=== PATIENT | male | born 1960 | race Caucasian/White ===

== ENCOUNTER 2021-05-27 14:38 | Emergency (ER) | payer SELFPAY | END 2021-05-27 16:20 | disposition left against medical advice (07) | LOC: JP.ED 14:38 | DX: Z53.21 Procedure and treatment not carried out due to patient leaving prior to being seen by health care provider (principal) ==

== ENCOUNTER 2023-02-01 01:27 | Emergency (ER) | payer SELFPAY ==
[2023-02-01 01:40] VITALS: BP 143/80; PULSE 69
[2023-02-01] MEDS ORDERED: Acetaminophen/HYDROcodone 325-10 MG Tab PO ONE (02:00)
[2023-02-01] MEDS ORDERED: Pantoprazole 40 MG Vial IVPUSH ONE (02:00)
[2023-02-01 02:35] LABS: BASOPHILS ABSOLUTE AUTO 0.05 K/uL (0.00-0.10); BASOPHILS PERCENT AUTO 0.4 % (0.1-1.3); EOSINOPHILS ABSOLUTE AUTO 0.07 K/uL (0.00-0.40); EOSINOPHILS PERCENT AUTO 0.6 % (0.0-5.4); HEMATOCRIT 47.3 % (38.4-49.7); HEMOGLOBIN 16.1 g/dL (12.9-16.9); IMMATURE GRAN ABSOLUTE AUTO 0.05 K/uL (0.00-0.23); IMMATURE GRAN PERCENT AUTO 0.4 % (0.0-0.7); LYMPHOCYTES ABSOLUTE AUTO 1.04 K/uL (0.8-3.3); LYMPHOCYTES PERCENT AUTO 8.9 % (11.4-47.7); MEAN CORPUSCULAR HEMOGLOBIN 30.6 pg (31.6-35.5); MEAN CORPUSCULAR VOLUME 89.8 fL (81.4-99.0); MONOCYTES ABSOLUTE AUTO 0.79 K/uL (0.20-0.90); MONOCYTES PERCENT AUTO 6.8 % (3.3-12.6); NEUTROPHILS ABSOLUTE AUTO 9.65 K/uL (1.0-7.6); NEUTROPHILS PERCENT AUTO 82.9 % (40.0-78.1); PLATELET COUNT,PLT 264 K/uL (130-375); RED BLOOD CELL COUNT 5.27 M/uL (4.14-5.76); WHITE BLOOD CELL COUNT,WBC 11.7 K/uL (3.2-11.0)
[2023-02-01 02:55] LABS: A/G RATIO 0.8 (1.2-2.2); ALANINE AMINOTRANSFERASE,ALT 48 U/L (12-78); ALBUMIN 3.7 g/dL (3.4-5.0); ALKALINE PHOSPHATASE 95 U/L (46-116); ANION GAP 9.6 mmol/L (5.0-14.0); ASPARTATE AMNIOTRANSFERASE,AST 111 U/L (15-37); BILIRUBIN TOTAL 1.8 mg/dL (0.2-1.0); BLOOD UREA NITROGEN,BUN 15 mg/dL (7-18); CALCIUM 9.5 mg/dL (8.5-10.1); CARBON DIOXIDE,CO2 28 mmol/L (21-32); CHLORIDE,CL 103 mmol/L (100-108); EST CRCL DRUG DOSING (CG) 73.41 mL/min; ESTIMATED GFR 84 mL/min (>60); GLUCOSE RANDOM 144 mg/dL (74-106); LIPASE 580 U/L (73-393); POTASSIUM,K 3.7 mmol/L (3.6-5.2); PROTEIN TOTAL,TP 8.1 g/dL (6.4-8.2); SODIUM,NA 141 mmol/L (140-148)
== END 2023-02-01 03:14 | disposition home or self-care (01) ==
LOC: JP.ED 01:27
DX: K29.50 Unspecified chronic gastritis without bleeding (principal); K21.9 Gastro-esophageal reflux disease without esophagitis; Z79.01 Long term (current) use of anticoagulants; Z79.899 Other long term (current) drug therapy
CPT/HCPCS: 36415; 80053; 83690; 85025; 96374; 99284; A9270; C9113

== ENCOUNTER 2024-01-07 12:35 | Inpatient (IN) | payer MEDICARE, OTHER ==
[2024-01-07] MEDS ORDERED: Enoxaparin 100 MG/1 ML Syringe SUBCUT SCH (13:00)
[2024-01-07 13:39] VITALS: PULSE 121
[2024-01-07 13:40] LABS: BASOPHILS ABSOLUTE AUTO 0.08 K/uL (0.00-0.10); BASOPHILS PERCENT AUTO 0.6 % (0.1-1.3); EOSINOPHILS ABSOLUTE AUTO 0.19 K/uL (0.00-0.40); EOSINOPHILS PERCENT AUTO 1.4 % (0.0-5.4); HEMATOCRIT 47.1 % (38.4-49.7); HEMOGLOBIN 16.2 g/dL (12.9-16.9); IMMATURE GRAN ABSOLUTE AUTO 0.06 K/uL (0.00-0.23); IMMATURE GRAN PERCENT AUTO 0.4 % (0.0-0.7); LYMPHOCYTES ABSOLUTE AUTO 1.68 K/uL (0.8-3.3); LYMPHOCYTES PERCENT AUTO 12.3 % (11.4-47.7); MEAN CORPUSCULAR HGB CONC 34.4 g/dL (31.6-35.5); MEAN CORPUSCULAR VOLUME 87.2 fL (81.4-99.0); MONOCYTES ABSOLUTE AUTO 1.06 K/uL (0.20-0.90); MONOCYTES PERCENT AUTO 7.8 % (3.3-12.6); NEUTROPHILS ABSOLUTE AUTO 10.59 K/uL (1.0-7.6); NEUTROPHILS PERCENT AUTO 77.5 % (40.0-78.1); PLATELET COUNT,PLT 301 K/uL (130-375); WHITE BLOOD CELL COUNT,WBC 13.7 K/uL (3.2-11.0)
[2024-01-07 13:51] LABS: INR 1.1; PROTHROMBIN TIME 11.2 sec (9.2-10.6); PTT,PARTIAL THROMBOPLSTIN TIME 28.2 sec (21.8-27.3)
[2024-01-07] MEDS: Heparin Sodium 5,000 Units/ML Vial IVPUSH ONE (13:56)
[2024-01-07 14:00] LABS: A/G RATIO 0.6 (1.2-2.2); ALANINE AMINOTRANSFERASE,ALT 66 U/L (12-78); ALBUMIN 3.1 g/dL (3.4-5.0); ALKALINE PHOSPHATASE 190 U/L (46-116); ASPARTATE AMNIOTRANSFERASE,AST 66 U/L (15-37); BILIRUBIN TOTAL 0.7 mg/dL (0.2-1.0); BLOOD UREA NITROGEN,BUN 10 mg/dL (7-18); CARBON DIOXIDE,CO2 24 mmol/L (21-32); CHLORIDE,CL 103 mmol/L (100-108); EST CRCL DRUG DOSING (CG) 71.25 mL/min; ESTIMATED GFR 84 mL/min (>60); GLUCOSE RANDOM 102 mg/dL (74-106); POTASSIUM,K 4.2 mmol/L (3.6-5.2); PROTEIN TOTAL,TP 8.5 g/dL (6.4-8.2); SODIUM,NA 137 mmol/L (140-148)
[2024-01-07] MEDS: Heparin Sodium/D5W 25,000 UNITS/500 ML BAG IV SCH (14:00)
[2024-01-07 14:05] LABS: ANION GAP 14.2 mmol/L (5.0-14.0)
[2024-01-07 15:07] VITALS: BP 119/86
[2024-01-07] MEDS ORDERED: traZODone 50 MG Tab PO SCH (21:00)
[2024-01-08] MEDS ORDERED: Pantoprazole 40 MG Tab.CR PO SCH (07:30)
[2024-01-08] MEDS ORDERED: Non-Formulary Medication 1 Each (Olanzapine [Olanzapine] 15 MG Tablet) PO SCH (09:00)
[2024-01-08] MEDS ORDERED: TRAZODONE HCL 300 MG PO SCH (09:00)
[2024-01-08] MEDS ORDERED: OLANZapine 5 MG Tab PO SCH (09:00)
== END 2024-01-07 17:20 | DRG 176 ==
LOC: JP.ICU 12:35
PROVIDERS: ADMIT Internal Medicine; ATTEND Internal Medicine
DX: I26.99 Other pulmonary embolism without acute cor pulmonale (principal); H54.7 Unspecified visual loss; K21.9 Gastro-esophageal reflux disease without esophagitis; N40.0 Benign prostatic hyperplasia without lower urinary tract symptoms; G47.00 Insomnia, unspecified; R10.13 Epigastric pain; F32.A Depression, unspecified; Z79.899 Other long term (current) drug therapy; Z87.19 Personal history of other diseases of the digestive system; Z87.81 Personal history of (healed) traumatic fracture; Z90.89 Acquired absence of other organs; Z98.890 Other specified postprocedural states
CPT/HCPCS: 36415; 80053; 85025; 85610; 85730; 93005; 93306; J1644

== ENCOUNTER 2024-04-27 18:39 | Emergency (ER) | payer OTHER, MEDICARE ==
[2024-04-27 20:40] LABS: INR 3.2; PROTHROMBIN TIME 31.4 sec (9.2-10.6)
[2024-04-27] MEDS: Acetaminophen/oxyCODONE 325-5 MG Tab PO ONE (20:51)
[2024-04-27 21:23] VITALS: BP 107/78; PULSE 97
== END 2024-04-27 21:19 | disposition home or self-care (01) ==
LOC: JP.ED 18:39
DX: S82.52XA Displaced fracture of medial malleolus of left tibia, initial encounter for closed fracture (principal); K21.9 Gastro-esophageal reflux disease without esophagitis; Z79.899 Other long term (current) drug therapy; V29.99XA Rider (driver) (passenger) of other motorcycle injured in unspecified traffic accident, initial encounter; Z79.01 Long term (current) use of anticoagulants
CPT/HCPCS: 36415; 73610; 85610; 99283; 99284; A9270

== ENCOUNTER 2024-09-12 07:26 | Day surgery (SDC) | payer MEDICARE, OTHER ==
[~2024-09-12 07:26] MED LIST: Dexamethasone 4 MG/ML SDV ONE; Glycopyrrolate 0.2 MG/ML 5 ML MDV ONE; Neostigmine Methylsulfate 10 MG/10 ML MDV ONE; Ondansetron 4 MG/2 ML SDV ONE; Propofol 200 MG/20 ML SDV ONE; Rocuronium 50 MG/5 ML Vial ONE; Succinylcholine 200 MG/10 ML MDV ONE; fentaNYL 250 MCG/5 ML SDV ONE
[2024-09-12 07:53] LABS: HEMOGLOBIN 16.4 g/dL (12.9-16.9); MEAN CORPUSCULAR HEMOGLOBIN 31.3 pg (31.6-35.5); MEAN CORPUSCULAR HGB CONC 34.2 g/dL (31.6-35.5); MEAN CORPUSCULAR VOLUME 91.6 fL (81.4-99.0); RED BLOOD CELL COUNT 5.24 M/uL (4.14-5.76); WHITE BLOOD CELL COUNT,WBC 11.4 K/uL (3.2-11.0)
[2024-09-12 08:15] LABS: ANION GAP 10.5 mmol/L (5.0-14.0); CALCIUM 9.3 mg/dL (8.5-10.1); CREATININE 1.2 mg/dL (0.8-1.3); EST CRCL DRUG DOSING (CG) 58.58 mL/min
[2024-09-12] MEDS: Nozin Nasal Sanitizer NASBOTH ONE (08:23)
[2024-09-12 08:25] LABS: INR 1.1; PROTHROMBIN TIME 10.8 sec (9.2-10.6)
[2024-09-12] MEDS ORDERED: ceFAZolin 2 GM in Sodium Chloride 0.9% 50 ML IV ONE (08:30)
[2024-09-12] MEDS: Lactated Ringers 1,000 ML IV SCH (08:34)
[2024-09-12] MEDS: ceFAZolin 2 GM in Premix Bag 1 BAG IV ONE (09:00)
[2024-09-12] MEDS: Bupivacaine 0.5% 30 ML SDV ONE (09:46)
[2024-09-12] MEDS ORDERED: fentaNYL 250 MCG/5 ML SDV ONE (09:47)
[2024-09-12] MEDS: Acetaminophen/HYDROcodone 325-5 MG Tab PO PRN (12:01)
[2024-09-12 12:26] VITALS: BP 139/64; PULSE 106
== END 2024-09-12 12:41 | disposition home or self-care (01) ==
LOC: JP.SDS 07:26
PROVIDERS: ATTEND Specialist
DX: S82.842K Displaced bimalleolar fracture of left lower leg, subsequent encounter for closed fracture with nonunion (principal); I10 Essential (primary) hypertension; K21.9 Gastro-esophageal reflux disease without esophagitis; X58.XXXD Exposure to other specified factors, subsequent encounter
CPT/HCPCS: 01480-QZ; 27792; 36415; 76000; 80048; 85027; 85610; A9270-GY; C1713; C1776; J0330; J0665; J0690; J1100; J1596; J2405; J2704; J2710; J3010; J3490; J7120